=== PATIENT | female | born 1945 | race Caucasian/White ===

== ENCOUNTER → 2018-10-05 15:00 | Outpatient (CLI) | payer MEDICARE, OTHER, SELFPAY ==
--- NOTE | 2018-10-05 | DI.MG.S_ITS ---
BILATERAL DIGITAL SCREENING MAMMOGRAM 3D/2D WITH CAD: 10/05/2018 CLINICAL: Routine screening. Family history of breast cancer. Comparison is made to exams dated: 12/11/2015 mammogram - [facility], 11/27/2012 mammogram, and 11/27/2012 mammogram - Loc[facility]. There are scattered fibroglandular elements in both breasts. Current study was also evaluated with a Computer Aided Detection (CAD) system. No significant masses, calcifications, or other findings are seen in either breast. There has been no significant interval change. IMPRESSION: NEGATIVE There is no mammographic evidence of malignancy. A 1 year screening mammogram is recommended. This exam was interpreted at Station ID: [id number]. NOTE: For mammograms, a report in lay terms will be sent to the patient. Approximately 15% of breast malignancies will not be visualized mammographically. In the management of a palpable breast mass, a negative mammogram must not discourage biopsy of a clinically suspicious lesion. Electronically Signed By: Denzel [email or web address]/[email or web address]:10/05/2018 17:06:20 letter sent: Normal Exam ACR BI-RADS Category 1: Negative 3341F
== END ==
PROVIDERS: PCP Family Medicine; Visit Provider Nurse Practitioner Family
DX: Z12.31 Encounter for screening mammogram for malignant neoplasm of breast (principal); Z80.3 Family history of malignant neoplasm of breast
CPT/HCPCS: 77063; 77067

== ENCOUNTER → 2022-11-06 12:42 | Outpatient (CLI) | payer MEDICARE, OTHER, SELFPAY ==
--- NOTE | 2022-11-06 | DI.RAD.S_ITS ---
Bone Density Report Name: EMELYN DAVALOS Age: 76 Sex: Female Ethnicity: White Date of : 1945 Indication: postmenopausal; screening for osteoporosis; Referring Provider: ROSE JIMENEZ Study: Bone densitometry was performed. Exam Date: November 06, 2022 Accession number: [id number] Bone Density: Region BMD T-score Z-score Classification AP Spine(L1-L4) 1.139 0.8 3.4 Normal Femoral Neck (Left) 0.601 -2.2 0.0 Osteopenia Total Hip (Left) 0.816 -1.0 0.9 Normal Femoral Neck (Right) 0.538 -2.8 -0.6 Osteoporosis Total Hip (Right) 0.803 -1.1 0.8 Osteopenia Total Hip Mean 0.809 -1.1 0.9 Osteopenia World Health Organization criteria for BMD impression classify patients as: Normal (T-score at or above -1.0), Osteopenia (T-score between -1.0 and -2.5), or Osteoporosis (T-score at or below -2.5). 10-year Fracture Risk: FRAX not reported because: Some T-score for Spine Total or Hip Total or Femoral Neck at or below -2.5 Impression: The patient has osteoporosis, based on the Right Femoral Neck T-score. Discussion: INCREASED RISK OF FRACTURE. BONE DENSITY IS UNDESIRABLY LOW AT ONE OR MORE SKELETAL SITES, CONSISTENT WITH POSTMENOPAUSAL OSTEOPOROSIS. This patient's lowest T-score meets the World Health Organization's (WHO) criteria for osteoporosis at one or more sites (T-score -2.5 or below). In untreated patients, the risk of osteoporotic fracture increases approximately two-fold for each 1.0 SD decrease in T-score. Low bone density is not the only risk factor for fracture; also consider factors such as patient's age, frailty or poor health, risk of falling, risk of injury, previous osteoporotic fracture, family history of osteoporosis, cigarette smoking, low body weight, etc. Not everyone with low bone mineral density has osteoporosis; osteomalacia and other metabolic bone disorders should also be considered. Patients who have osteoporosis should be evaluated for specific diseases and conditions (secondary causes) that may cause or contribute to bone loss. The [place] [employer] Clinical Endocrinologists (AACE) and National Osteoporosis Foundation (NOF) recommend pharmacologic intervention for all postmenopausal women whose T-score is in this range. The patient should follow a healthful lifestyle (good nutrition with adequate calcium and vitamin D, and appropriate weight-bearing exercise). Follow-Up: Consider a repeat BMD and Vertebral Fracture Assessment (VFA) exam in 2 years or sooner if medically necessary, to reassess this patient's status. Reported by: ASA JANE M.D. on 11/06/2022 1:16:00 PM.
--- NOTE | 2022-11-06 | DI.MRI.S_ITS ---
PROCEDURE: MR HEAD/BRAIN WO/W CON INDICATIONS: MEMORY LOSS TECHNIQUE: Noncontrast axial T1 spin echo, axial T2 fast spin echo, sagittal and axial FLAIR, coronal T2 fast spin echo, axial gradient echo, axial diffusion and ADC through the brain. After the administration of contrast, axial and coronal and sagittal T1 spin echo with fat saturation through the brain. COMPARISON: [facility], CT, HEAD WITHOUT CONTRAST, 10/02/2016, 11:37. FINDINGS: Image quality: Excellent. CSF spaces: Basal cisterns are patent. No extra-axial fluid collections. Ventricles are normal in size and shape. Brain: No midline shift. No intracranial bleeds or masses. No abnormal intracranial enhancement. There is cerebral volume loss for age. There is periventricular white matter chronic small vessel ischemic change. The brainstem appears normal. Diffusion-weighted images demonstrate no acute ischemic insults. No chronic ischemic insults. Normal intravascular flow voids are present. Skull and face: Calvarial marrow is normal in signal. Orbits appear normal. Note is made of bilateral lens replacements. Sinuses: Sinuses and mastoids appear clear. IMPRESSION: Brain MRI within normal limits for age. No findings of acute or subacute infarction can be seen. No masses or abnormal enhancement can be seen. Dictated by: Jameson Castro M.D. on 11/06/2022 at 14:32 Approved by: Jameson Castro M.D. on 11/06/2022 at 14:33
--- NOTE | 2022-11-06 | DI.MG.S_ITS ---
BILATERAL DIGITAL SCREENING MAMMOGRAM 3D/2D WITH CAD: 11/06/2022 CLINICAL: Routine screening. Family history of breast cancer. Comparison is made to exams dated: 10/05/2018 mammogram - [facility], 12/11/2015 mammogram - [facility], and 11/27/2012 mammogram - [facility]. There are scattered areas of fibroglandular density in both breasts (category b / 25%-50% glandular tissue). Current study was also evaluated with a Computer Aided Detection (CAD) system. No significant masses, calcifications, or other findings are seen in either breast. There has been no significant interval change. IMPRESSION: NEGATIVE There is no mammographic evidence of malignancy. A 1 year screening mammogram is recommended. Based on the Tyrer Cuzick model (a risk assessment model) the patient's lifetime risk is 4.8% and her 10 year risk is 0.0%. According to the ACR, ACS, and NCCN guidelines, an annual breast MRI exam along with mammogram is recommended if the patient's lifetime risk is 20% or greater. This exam was interpreted at Station ID: [id number]. NOTE: For mammograms, a report in lay terms will be sent to the patient. Approximately 15% of breast malignancies will not be visualized mammographically. In the management of a palpable breast mass, a negative mammogram must not discourage biopsy of a clinically suspicious lesion. Electronically Signed By: Luis watters/deepali:11/06/2022 14:58:15 letter sent: Normal Exam ACR BI-RADS Category 1: Negative 3341F
== END ==
PROVIDERS: PCP Nurse Practitioner Family; Referring Provider Nurse Practitioner Family; Visit Provider Nurse Practitioner Family
DX: Z80.3 Family history of malignant neoplasm of breast (principal); Z12.31 Encounter for screening mammogram for malignant neoplasm of breast; M81.0 Age-related osteoporosis without current pathological fracture; R41.3 Other amnesia; Z13.820 Encounter for screening for osteoporosis; Z78.0 Asymptomatic menopausal state; Z92.23 Personal history of estrogen therapy; Z90.710 Acquired absence of both cervix and uterus
CPT/HCPCS: 70553; 77063; 77067; 77080

== ENCOUNTER 2024-05-14 15:25 | Emergency (ER) | payer MEDICARE, OTHER, SELFPAY ==
[2024-05-14 15:35] VITALS: BP 180/79; PULSE 60; RESP 17; TEMP 36.3; O2SAT 95; BMI 39.0
--- NOTE | 2024-05-14 15:42 | DI.RAD.S_ITS ---
PROCEDURE: XR KNEE LT 3V INDICATIONS: pain TECHNIQUE: 3 views of the knee were acquired. COMPARISON: None. FINDINGS: Bones: No fractures or dislocations. No suspicious bony lesions. Tricompartmental arthritic change. Soft tissues: Mild joint effusion. No suspicious soft tissue calcifications. IMPRESSION: Mild effusion. No visualized acute fracture or dislocation. However, if clinical concern and/or pain persist, short interval imaging followup in 7-10 days is recommended, as occult injury cannot be definitively excluded. Dictated by: Ria Finn M.D. on 05/14/2024 at 15:59 Approved by: Ria Finn M.D. on 05/14/2024 at 15:59
--- NOTE | 2024-05-14 17:47 | ED_ITS ---
HPI - Extremity Problem <Rose Gomez PA-C - Last Filed: 05/14/24 18:50> General Chief complaint: Extremity Problem,Nontraumatic Stated complaint: L Knee Injury Time Seen by Provider: 05/14/24 17:47 Source: patient Mode of arrival: Ambulatory History of Present Illness HPI Narrative: Patient is a very pleasant 78-year-old female that presents to the emergency room department today by herself with complaints of left knee discomfort and pain. 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 Unfortunately her left knee taken the brunt of the rehabbing, and now her left knee is causing her quite a bit of discomfort and pain. Currently at this time she states she has having a hard time doing activities of daily living, she is still able to cook, do some minor cleaning but she is having difficulty doing the laundry changing the bed and doing more active duties in the house and caring for her . She currently is taking ibuprofen in the evening, she is icing the knee, using heat. However, she has not wrapping the knee, she has not using ibuprofen during the daytime. She attempted to see her primary care doctor who said that she should go to the emergency department and asked to have an MRI. Patient denies recent injury, trauma or fall. The pain and discomfort that she is having has been ongoing for the past 2 weeks. There has been no increase in the discomfort or pain it just now is becoming increasingly hard for her to do activities and care for her . Related Data Home Medications Medication Instructions Recorded Confirmed VITAMIN D (Vitamin D3) 1,000 unit PO QDAY ##0 12/30/12 aspirin 81 mg tablet,delayed 162 mg PO QDAY ##0 12/30/12 release magnesium 200 mg tablet 200 mg PO QDAY ##0 03/12/17 Previous Rx's Medication Instructions Recorded albuterol sulfate 90 mcg/actuation 2 puff INH QID #1 inh 06/11/16 aerosol inhaler (Proventil HFA) beclomethasone dipropionate 80 0 INH BID #1 inh 06/11/16 mcg/actuation aerosol inhaler (Qvar) sertraline 50 mg tablet 50 mg PO QDAY #90 tabs 06/11/16 mupirocin 2 % topical ointment 1 alma delia topical BID ##22 10/05/16 ketoconazole 2 % shampoo (Nizoral) 1 alma delia topical SEE INSTRUCTIONS 01/27/17 #120 mL levothyroxine 75 mcg tablet 0.075 mg PO QAM #90 tabs 03/13/17 (Synthroid) Allergies Allergy/AdvReac Type Severity Reaction Status Date / Time acetaminophen [From Vicodin] AdvReac Severe GI UPSET Verified 05/14/24 15:35 hydrocodone [From Vicodin] AdvReac Severe GI UPSET Verified 05/14/24 15:35 amoxicillin [From Augmentin] AdvReac Unknown NAUSEA/VOMI Verified 05/14/24 15:35 TING clavulanic acid AdvReac Unknown NAUSEA/VOMI Verified 05/14/24 15:35 [From Augmentin] TING Review of Systems <Rose Gomez PA-C - Last Filed: 05/14/24 18:50> Review of Systems Narrative: Negative except as above Musculoskeletal Comments: Left knee pain Patient History <Rose Gomez PA-C - Last Filed: 05/14/24 18:50> Surgical History History of cataract removal with insertion of prosthetic lens Status post cholecystectomy Status post hysterectomy Family History Father Stroke Mother Heart disease Sister Age: 87 Depression Parkinson's disease Dementia Sister Age: 81 Breast cancer Depression Social History Smoking Status: Never smoker Smoking Status: Never smoker Substance Use Type: does not use Exam <Rose Gomez PA-C - Last Filed: 05/14/24 18:50> Initial Vital Signs Initial Vital Signs: Vital Signs Temperature 97.3 F L 05/14/24 15:35 Pulse Rate 60 05/14/24 15:35 Respiratory Rate 17 05/14/24 15:35 Blood Pressure 180/79 H 05/14/24 15:35 Pulse Oximetry 95 05/14/24 15:35 Oxygen Delivery Method Room Air 05/14/24 15:35 Reviewed Const General: cooperative, healthy appearing, comfortable, well developed, well groomed, No acute distress, No in distress and No anxious Nutritional Appearance: overweight Eyes General: Yes appearance normal, both eyes and all related structures Pupils: PERRL EOM: EOM intact bilaterally Skin Other: Warm pink and dry Neuro Other: Alert and oriented no acute distress Extrem Other: Range of motion, strength, pulses, cap refill is preserved, patient has an antalgic gait favoring the left knee, range of motion causes discomfort, ambulation causes discomfort. Psych Other: Appearance, mental status, speech, movement, mood, affect, attitude, thought process, thought content, judgment is appropriate. <Galen Davis MD - Last Filed: 05/14/24 21:13> Initial Vital Signs Initial Vital Signs: Vital Signs Temperature 97.3 F L 05/14/24 15:35 Pulse Rate 60 05/14/24 15:35 Respiratory Rate 17 05/14/24 15:35 Blood Pressure 180/79 H 05/14/24 15:35 Pulse Oximetry 95 05/14/24 15:35 Oxygen Delivery Method Room Air 05/14/24 15:35 Procedures <Rose Gomez PA-C - Last Filed: 05/14/24 18:50> Orthopedic Splinting/Casting Injury #1: Time of procedure: 18:46 Side: left Lower Extremity Injury Location: knee Lower Extremity Immobilizer: Sebastián wrap Placed by: Nursing Scores <Rose Gomez PA-C - Last Filed: 05/14/24 18:50> GCS Citation: 15 Course <Rose Gomez PA-C - Last Filed: 05/14/24 18:50> Orders Ordered: ED Orders 05/14/24 15:42 XR knee LT 3V Stat Vital Signs Vital signs: Vital Signs - 8 hr 05/14/24 15:35 05/14/24 18:32 Temperature 97.3 F L Pulse Rate 60 60 Respiratory Rate 17 18 Blood Pressure 180/79 H 174/76 H Pulse Oximetry 95 97 Oxygen Delivery Method Room Air Reviewed <Galen Davis MD - Last Filed: 05/14/24 21:13> Orders Ordered: ED Orders 05/14/24 15:42 XR knee LT 3V Stat Vital Signs Vital signs: Vital Signs - 8 hr 05/14/24 15:35 05/14/24 18:32 Temperature 97.3 F L Pulse Rate 60 60 Respiratory Rate 17 18 Blood Pressure 180/79 H 174/76 H Pulse Oximetry 95 97 Oxygen Delivery Method Room Air MDM - Extremity (Nontraumatic) <Rose Gomez PA-C - Last Filed: 05/14/24 18:50> Imaging Data Extremity x-ray #1: Radiologist's Impression: [address] [address] XRay Report Signed Patient: Ayaka Menjivar MR#: [id number] : 1945 Acct:[id number] Age/Sex: 78 / F Date of Service: 05/14/24 Loc: ED Accession Number: [id number] Procedure: XR knee LT 3V Ordering Provider: Galen Davis MD PROCEDURE: XR KNEE LT 3V INDICATIONS: pain TECHNIQUE: 3 views of the knee were acquired. COMPARISON: None. FINDINGS: Bones: No fractures or dislocations. No suspicious bony lesions. Tric ompartmental arthritic change. Soft tissues: Mild joint effusion. No suspicious soft tissue calcifications. IMPRESSION: Mild effusion. No visualized acute fracture or dislocation. However, if clinical concern and/or pain persist, short interval imaging followup in 7-10 days is recommended, as occult injury cannot be definitively excluded. Dictated by: Ria Finn M.D. on 05/14/2024 at 15:59 Approved by: Ria Finn M.D. on 05/14/2024 at 15:59 [facility] Narrative Medical decision making narrative: Pleasant 78-year-old female presents to the emergency department on the behest of her primary care doctor for possible MRI for her ongoing left knee pain. With a history of osteoarthritis, with a previous right knee pain that she has been rehabbing, and now due to ongoing subsequent over usage of the left knee now having left knee pain that is impacting her ability to do daily activities and care for her . Who over the last 2 weeks has had increasing discomfort and pain, with no recent injury, trauma or fall. Who is taking ibuprofen in the evening to get rest, and using ice with a moderate amount of relief for her discomfort and pain. However is not taking ibuprofen during the day and is using ice to help relieve the discomfort but continues to have problems doing her daily activities presents to the emergency room department requesting an MRI for evaluation of her meniscus and possible internal derangement of the left knee due to continued discomfort and pain. Currently at this time her x-rays show tricompartmental arthritis of the left knee. No acute fractures noted. Her exam is negative for any substantial acute findings. She is antalgic gait. Patient is here due to inability to complete activities of daily living. Currently at this time I have advised the patient that it would be better for primary care doctor ordered an outpatient MRI and follows up with the results. We have reviewed [id number] supportive therapy such as topical preparations, oral preparations ice, supportive devices such as Sebastián wraps, knee sleeves, hinged knee support braces as well. To help with supporting of the left knee. An outpatient MRI ordered by her primary care doctor for follow-up and if needed a referral to Orthopedics. I have advised her that we do not do elective MRIs here in the emergency room department for ongoing chronic related pain issues. MRIs are only ordered on an emergency basis here in the emergency department. Patient understands, and Sebastián wrap is applied prior to her leaving, she is given supplemental education ED precautions. Patient plans to call her primary care doctor and request an outpatient MRI be ordered. Differential diagnosis, over usage of the left knee, left knee sprain, possible internal derangement of the left knee. Discharge Plan Departure Patient Disposition: Home Clinical Impression: Left knee sprain Qualifiers: Encounter type: initial encounter Involved ligament of knee: unspecified ligament Qualified Code(s): S83.92XA - Sprain of unspecified site of left knee, initial encounter Internal derangement of knee Qualifiers: Laterality: left Qualified Code(s): M23.92 - Unspecified internal derangement of left knee Activity Restrictions/Additional Instructions: Elevate, ice, heat, consider using ibuprofen during the daytime, knee sleeve, Sebastián wrap. Please call your primary care doctor ask them to call in or faxed in a prescription for an MRI with and without contrast of the left knee to evaluate for meniscal injury, internal derangement of the left knee. Prescriptions: No Action aspirin 81 MG tablet,delayed release (DR/EC) 162 mg PO QDAY Qty: 0 VITAMIN D (Vitamin D3) 1,000 unit PO QDAY Qty: 0 albuterol sulfate [Proventil HFA] 90 MCG/PUFF HFA aerosol inhaler 2 puff INH QID Qty: 1 11RF sertraline 50 MG tablet 50 mg PO QDAY Qty: 90 3RF beclomethasone dipropionate [Qvar] 80 MCG/PUFF aerosol 0 INH BID Qty: 1 3RF mupirocin 2 % ointment 1 alma delia Topical BID Qty: 22 0RF ketoconazole [Nizoral] 2 % shampoo 1 alma delia Topical SEE INSTRUCTIONS Qty: 120 2RF magnesium 200 MG tablet 200 mg PO QDAY Qty: 0 levothyroxine [Synthroid] 75 MCG tablet 0.075 mg PO QAM Qty: 90 1RF Referrals: Asmita Wade ARNP [Primary Care Provider] - Stand Alone Forms: Patient Portal/API ED Sign-out <Galen Davis MD - Last Filed: 05/14/24 21:13> Cosign ED Attending Cosignature Attestation: I was immediately available in the department for consultation. This documentation has been reviewed. Galen Davis MD
[2024-05-14 18:32] VITALS: BP 174/76; PULSE 60; RESP 18; O2SAT 97
== END 2024-05-14 18:35 | disposition home or self-care (01) ==
PROVIDERS: Emergency Provider Physician Assistant; PCP Nurse Practitioner Family
DX: S83.92XA Sprain of unspecified site of left knee, initial encounter (principal); M23.92 Unspecified internal derangement of left knee; X58.XXXA Exposure to other specified factors, initial encounter
CPT/HCPCS: 73562; 99281; 99283

== ENCOUNTER 2025-01-08 15:05 | Emergency (ER) | payer MEDICARE, OTHER, SELFPAY ==
[2025-01-08] VITALS (10 sets, daily range): BP systolic 144–184; BP diastolic 68–84; PULSE 49–85; RESP 16–20; TEMP 36.3–36.8; O2SAT 83–100; BMI 38.3
--- NOTE | 2025-01-08 15:25 | ED_ITS ---
HPI - Trauma General Chief Complaint: Trauma Stated Complaint: GLF/head LAC History of Present Illness HPI narrative: 79-year-old female fell today ground level fall after tripping over a log hitting her head against a table on the way down with complaints of head, neck, middle back pain, left knee pain and numbness tingling down the left leg. Patient denies nausea, vomiting, diarrhea, chest pain, shortness of breath, dizziness, blurred vision, nausea, vomiting, bowel or bladder incontinence. Patient was C-collar backboard prior to arrival and [facility] here. Patient unsure last tetanus. Other than what is stated 14 point review of system is negative. Related Data Home Medications ?Medication ?Instructions ?Recorded ?Confirmed VITAMIN D (Vitamin D3) 1,000 unit PO QDAY ##0 12/30 aspirin 81 mg tablet,delayed 162 mg PO QDAY ##0 release magnesium 200 mg tablet 200 mg PO QDAY ##0 03/12/17 Previous Rx's ?Medication ?Instructions ?Recorded albuterol sulfate 90 mcg/actuation 2 puff INH QID #1 i nh 06/11/16 aerosol inhaler (Proventil HFA) beclomethasone dipropionate 80 0 INH BID #1 inh mcg/actuation aerosol inhaler (Qvar) sertraline 50 mg tablet 50 mg PO QDAY #90 tabs 06/11 mupirocin 2 % topical ointment 1 alma delia topical BID ##22 10/05/16 ketoconazole 2 % shampoo (Nizoral) 1 alma delia topical SEE I NSTRUCTIONS 01/27/17 #120 mL levothyroxine 75 mcg tablet 0.075 mg PO QAM #90 tabs 0 03/13/17 (Synthroid) Allergies Allergy/AdvReac Type Severity Reaction Status Date / Time hydrocodone (From Vicodin) AdvReac Severe GI UPSET Verified 01/08/25 15:15 amoxicillin (From Augmentin) AdvReac Unknown NAUSEA/VOMI Verified 01/08/25 15:15 TING clavulanic acid (From AdvReac Unknown NAUSEA/VOMI Verified 01/08/25 15:15 Augmentin) TING Review of Systems Review of Systems ROS Unobtainable: All systems reviewed & are unremarkable except as noted in HPI and below Patient History Surgical History History of cataract removal with insertion of prosthetic lens Status post cholecystectomy Status post hysterectomy Family History Father Stroke Mother Heart disease Sister Age: 87 Depression Parkinson's disease Dementia Sister Age: 81 Breast cancer Depression Exam Narrative Exam Narrative: GENERAL: [79] year old patient appears stated age. Well-developed patient, in mild distress. HEAD: Atraumatic. Normocephalic. EYES: Pupils equal round and reactive. Extraocular motions intact. No scleral icterus. No injection or drainage. ENT: Nose without bleeding, purulent drainage. Throat without erythema, tonsillar hypertrophy or exudate. Airway patent. NECK: Trachea midline. Non tender CARDIOVASCULAR: Regular rate and rhythm without murmurs, gallops, or rubs. RESPIRATORY: Clear to auscultation. Breath sounds equal bilaterally. No wheezes, rales, or rhonchi. GASTROINTESTINAL: Abdomen soft, non-tender, nondistended. EXTREMITIES: Pelvis stable exam no obvious deformity, left medial and lateral joint line knee tenderness to palpation but no effusion rash or open wounds motor sensory intact +2 DP +2 PT cap refill less than 2 sec BACK: Nontender without deformity or crepitance. No flank tenderness. NEURO: AOx3. GCS 15 nonfocal neuro exam motor sensory intact bilateral upper and lower extremity 5/5 SKIN: No rash or erythema of visible areas Initial Vital Signs Initial Vital Signs: Vital Signs Pulse Rate 83 01/08/25 15:10 Pulse Oximetry 98 01/08/25 15:10 Procedures Laceration Repair Laceration 1: Time of procedure: 17:25 Site: face Size (cm): 3.0 Description: linear Local Anesthetic: lidocaine 1% and with epi Amount of anesthesia used (mL): 2 Pre-repair: wound explored Skin layer closed with: nylon Skin layer suture size: 5-0 Number of sutures: 6 Course Orders Ordered: ED Orders 01/08/25 15:17 Complete Blood Count AUTO DIFF Stat Comprehensive Metabolic Panel Stat Lipase Stat 01/08/25 15:22 EKG-12 Lead Stat 01/08/25 15:23 CT cervical spine wo con Stat CT chest abd pel w con Stat CT head/brain wo con Stat 01/08/25 15:26 XR knee LT 3V Stat Ondansetron HCl (Ondansetron 4 Mg/2 Ml Inj) 4 mg IV NOW PRN PRN Reason: Nausea And Vomiting Last Admin: 01/08/25 16:26 Dose: 4 mg Documented By: Ondansetron HCl (Ondansetron 4 Mg Odt) 4 mg PO NOW PRN PRN Reason: Nausea And Vomiting Discontinued Medications Bacitracin (Bacitracin Oint 0.9 Gm Pckt) 1 applic TOP NOW ONE Stop: 01/08/25 17:24 Diphtheria/Tetanus/Acell Pertussis (Tet,Diph,Pertuss(Acell),Vac/Pf 0.5 Ml Syringe) 0.5 ml IM .ONCE ONE Stop: 01/08/25 15:24 Last Admin: 01/08/25 16:20 Dose: 0.5 ml Documented By: Vital Signs Vital signs: Vital Signs - 8 hr 01/08/25 15:10 01/08/25 15:15 01/08/25 15:17 Temperature 98.2 F Pulse Rate 83 82 76 Respiratory Rate 20 16 Blood Pressure 179/76 H Pulse Oximetry 98 97 96 Oxygen Delivery Method Room Air 01/08/25 15:17 01/08/25 15:30 01/08/25 15:57 Temperature Pulse Rate 49 L Respiratory Rate Blood Pressure 179/76 H 184/79 H Pulse Oximetry 83 L Oxygen Delivery Method 01/08/25 15:57 01/08/25 16:00 01/08/25 16:00 Temperature Pulse Rate 81 83 Respiratory Rate Blood Pressure 172/82 H Pulse Oximetry 97 97 Oxygen Delivery Method 01/08/25 16:30 Temperature Pulse Rate 85 Respiratory Rate Blood Pressure Pulse Oximetry 100 Oxygen Delivery Method MDM - Trauma Lab Data 01/08/25 15:17 01/08/25 15:17 Labs: Lab Results 01/08/25 Range/Units 15:17 WBC 5.9 (4.5-11.0) X10^3/uL RBC 4.31 (4.0-5.2) X10^6/uL Hgb 12.7 (12.0-16.0) g/dL Hct 37.8 (36-46) % MCV 87.6 (80-100) fL MCH 29.4 (26-34) PG MCHC 33.5 (30-36) % RDW 13.5 (11.6-14.8) % Plt Count 175 (150-400) X10^3/uL Neut % (Auto) 67.9 (50-75) % Lymph % (Auto) 23.9 L (25-40) % [place] % (Auto) 5.9 (3-14) % Eos % (Auto) 1.6 L (2-4) % Baso % (Auto) 0.7 (0-2) % Neut # (Auto) 4000 (1467-4691) /uL Lymph # (Auto) 1400 (0294-8068) /uL [place] # (Auto) 300 (0-900) /uL Eos # (Auto) 100 (0-450) /uL Baso # (Auto) 0 (0-100) /uL Sodium 139 (137-145) mmol/L Potassium 3.5 (3.4-5.1) mmol/L Chloride 111 H (98-107) mmol/L Carbon Dioxide 24 (22-32) mmol/L BUN 15 (7-17) mg/dL Creatinine 0.88 (0.52-1.04) mg/dL Estimated GFR > 60 (>60) mL/min BUN/Creatinine Ratio 17.0 (6-22) Glucose 99 (70-99) mg/dL Calcium 8.6 (8.4-10.2) mg/dL Total Bilirubin 0.6 (0.2-1.3) mg/dL AST 29 (14-36) IU/L ALT 14 (<35) IU/L Alkaline Phosphatase 103 (38-126) U/L Total Protein 6.2 L (6.3-8.2) g/dL Albumin 3.5 (3.5-5.0) g/dL Globulin 2.7 (1.7-4.1) g/dL Albumin/Globulin Ratio 1.3 (1.0-2.8) Lipase 143 (23-300) U/L Imaging Data Extremity x-ray #1: Radiologist's Impression: [address] [address] XRay Report Signed Patient: Ayaka Menjivar MR#: [id number] : 1945 Acct:[id number] Age/Sex: 79 / F Date of Service: 01/08/25 Loc: ED Accession Number: [id number] Procedure: XR knee LT 3V Ordering Provider: Lenny Desir D.O. PROCEDURE: XR KNEE LT 3V INDICATIONS: fall TECHNIQUE: 3 views of the knee were acquired. COMPARISON: [facility], , XR KNEE LT 3V, 05/14/2024, 15:40. FINDINGS: Bones: No fractures or dislocations. No suspicious bony lesions. Medial compartment joint space narrowing Soft tissues: No joint effusion. No suspicious soft tissue calcifications. IMPRESSION: Arthritic changes without fracture or foreign body Approved by: Damon Webb M.D. on 01/08/2025 at 15:02 CT scan - head: Radiologist's Impression: [place] [address] CT Scan Report Signed Patient: Ayaka Menjivar MR#: [id number] : 1945 Acct:[id number] Age/Sex: 79 / F Date of Service: 01/08/25 Loc: ED Accession Number: [id number] Procedure: CT head/brain wo con Ordering Provider: Lenny Desir D.O. PROCEDURE: CT HEAD/BRAIN WO CON INDICATIONS: trauma mechanical fall TECHNIQUE: Noncontrast 4.5 mm thick angled axial sections acquired from the foramen magnum to the vertex, with coronal and sagittal reformats. For radiation dose reduction, the following was used: automated exposure control, adjustment of mA and/or kV according to patient size. COMPARISON: None. FINDINGS: Image quality: Diagnostic. CSF spaces: Basal cisterns are patent. No extra-axial fluid collections. Ventricles are normal in size and shape. Brain: No midline shift. No intracranial mass effect or hemorrhage. Avila- white matter interface is normal. Skull and face: Calvarium and visualized facial bones are intact, without suspicious lesions. Small right frontal soft tissue hematoma Sinuses: Visualized sinuses and mastoids are clear. IMPRESSION: Small right frontal scalp hematoma without underlying skull fracture or intracranial hemorrhage Approved by: Damon Webb M.D. on 01/08/2025 at 15:07 CT scan - chest: Radiologist's Impression: [address] [address] [address] Scan Report Signed Patient: Ayaka Menjivar MR#: [id number] : 1945 Acct:[id number] Age/Sex: 79 / F Date of Service: 01/08/25 Loc: ED Accession Number: [id number] Procedure: CT chest abd pel w con Ordering Provider: Lenny Desir D.O. PROCEDURE: CT CHEST ABD PEL W CON INDICATIONS: trauma fall TECHNIQUE: After the administration of intravenous contrast, 5 mm thick sections acquired from the lung apices to the symphysis. 5 mm coronal and sagittal reformats were performed, with additional 7 mm MIP reformats through the lungs. For radiation dose reduction, the following was used: automated exposure control, adjustment of mA and/or kV according to patient size. COMPARISON: None. FINDINGS: Image quality: Excellent. CHEST: Lower Neck: No enlarged lymph nodes. Thyroid: No thyroid nodules which require sonographic follow up, per consensus guidelines. Axillae: No enlarged lymph nodes. Chest Wall: Unremarkable. Lungs and Pleura: No pneumothorax or pleural effusions. No consolidation or suspicious nodules. Heart: Heart size is normal. No pericardial effusion. Thoracic Vessels: The aorta and pulmonary arteries demonstrate normal size. Mediastinum and [place]: No enlarged lymph nodes. Esophagus: No wall thickening. No hiatal hernia. ABDOMEN: Liver: No solid mass. Gallbladder: Status post cholecystectomy Biliary ducts: No biliary dilation. Pancreas: No ductal dilation. Spleen: Size is within normal limits. Adrenal Glands: No adrenal nodules. Kidneys and Ureters: No hydronephrosis. No solid mass. No complex renal cystic lesion which requires follow up. Stomach and Bowel: Normal colonic caliber, without significant wall thickening. Peritoneum: No abnormal intraperitoneal fluid. No free air. Ventral Wall: No significant ventral hernia. Abdominal Nodes: No retroperitoneal or mesenteric adenopathy by size criteria. Vessels: Aorta and inferior vena cava are normal in size. PELVIS: Pelvic Organs: Status post hysterectomy. No adnexal mass seen. Bladder: No bladder wall thickening, accounting for underdistention. Pelvic Nodes: No enlarged lymph nodes. Miscellaneous: No inguinal hernias are seen. Bones: No aggressive osseous abnormality. IMPRESSION: No acute traumatic lesion seen in the chest, abdomen and pelvis. Dictated by: Jerardo Hughes M.D. on 01/08/2025 at 15:58 Approved by: Jerardo Hughes M.D. on 01/08/2025 at 16:[address] [place] [address] [id number] [address] Scan Report Signed Patient: Ayaka Menjivar MR#: [id number] : 1945 Acct:[id number] Age/Sex: 79 / F Date of Service: 01/08/25 Loc: ED Accession Number: [id number] Procedure: CT cervical spine wo con Ordering Provider: Lenny Desir D.O. PROCEDURE: CT CERVICAL SPINE WO CON INDICATIONS: trauma mechanical fall TECHNIQUE: Noncontrast 3 mm thick sections acquired from the skull base to the T4 level. Sagittal and coronal reformats were then constructed. For radiation dose reduction, the following was used: automated exposure control, adjustment of mA and/or kV according to patient size. COMPARISON: None. FINDINGS: Image quality: Excellent. Bones: No fractures or dislocations. Visualized superior ribs are intact. Diffuse disc space narrowing marginal osteophytes. Moderate arthropathy. Moderate central stenosis C6-7. Facet ankylosis at C3-4 and C4-5 particularly on the right Soft tissues: Prevertebral soft tissues are normal in thickness. No paravertebral hematomas. No apical pneumothoraces. IMPRESSION: No displaced fracture or traumatic subluxation. 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 CT head chest abdomen and pelvis did not show any acute process along with cervical spine showing degenerative disc disease and arthropathy associated with moderate C6-7 central stenosis and frontal scalp hematoma. GCS of 15 nonfocal neuro exam. Six stitches placed single interrupted sutures 5-0 Ethicon topical bacitracin applied suture removal in 3-5 days with PCP. Differential diagnosis includes brain hemorrhage fracture dislocation contusion laceration foreign body liver laceration spleen injury. Discharge Plan Departure Patient Disposition: Home Clinical Impression: Back pain of thoracolumbar region Hematoma of frontal scalp Qualifiers: Encounter type: initial encounter Qualified Code(s): S00.03XA - Contusion of scalp, initial encounter Forehead laceration Qualifiers: Encounter type: initial encounter Qualified Code(s): S01.81XA - Laceration without foreign body of other part of head, initial encounter Acute knee pain Qualifiers: Laterality: left Qualified Code(s): M25.562 - Pain in left knee Activity Restrictions/Additional Instructions: Return with new or worsening symptoms. Suture removal in 3-5 days. Prescriptions: No Action aspirin 81 MG tablet,delayed release (DR/EC) 162 mg PO QDAY Qty: 0 VITAMIN D (Vitamin D3) 1,000 unit PO QDAY Qty: 0 albuterol sulfate [Proventil HFA] 90 MCG/PUFF HFA aerosol inhaler 2 puff INH QID Qty: 1 11RF sertraline 50 MG tablet 50 mg PO QDAY Qty: 90 3RF beclomethasone dipropionate [Qvar] 80 MCG/PUFF aerosol 0 INH BID Qty: 1 3RF mupirocin 2 % ointment 1 alma delia Topical BID Qty: 22 0RF ketoconazole [Nizoral] 2 % shampoo 1 alma delia Topical SEE INSTRUCTIONS Qty: 120 2RF magnesium 200 MG tablet 200 mg PO QDAY Qty: 0 levothyroxine [Synthroid] 75 MCG tablet 0.075 mg PO QAM Qty: 90 1RF Referrals: Asmita Wade ARNP [Primary Care Provider, Medical] Stand Alone Forms: Patient Portal/API
[2025-01-08 15:33] LABS: Add Manual Diff / Slide Review NO; Basophils Absolute Auto 0 /uL (0-100); Basophils Percent Auto 0.7 % (0-2); Eosinophils Absolute Auto 100 /uL (0-450); Eosinophils Percent Auto 1.6 % (2-4); Hematocrit 37.8 % (36-46); Hemoglobin 12.7 g/dL (12.0-16.0); Lymphocytes Absolute Auto 1400 /uL (1100-4500); Lymphocytes Percent Auto 23.9 % (25-40); Mean Corpuscular HGB Conc 33.5 % (30-36); Mean Corpuscular Hemoglobin 29.4 PG (26-34); Mean Corpuscular Volume 87.6 fL (80-100); Monocytes Absolute Auto 300 /uL (0-900); Monocytes Percent Auto 5.9 % (3-14); Neutrophils Absolute Auto 4000 /uL (1500-7000); Neutrophils Percent Auto 67.9 % (50-75); Platelet Count 175 X10^3/uL (150-400); Red Blood Cell Count 4.31 X10^6/uL (4.0-5.2); Red Cell Distribution Width 13.5 % (11.6-14.8); White Blood Cell Count 5.9 X10^3/uL (4.5-11.0)
[2025-01-08 15:38] LABS: Alanine Aminotransferase 14 IU/L (<35); Albumin 3.5 g/dL (3.5-5.0); Albumin Globulin Ratio 1.3 (1.0-2.8); Alkaline Phosphatase 103 U/L (38-126); Aspartate Aminotransferase 29 IU/L (14-36); Bilirubin Total 0.6 mg/dL (0.2-1.3); Blood Urea Nitrogen 15 mg/dL (7-17); Calcium 8.6 mg/dL (8.4-10.2); Carbon Dioxide 24 mmol/L (22-32); Chloride 111 mmol/L (98-107); Estimated Glomerular Filt Rate > 60 mL/min (>60); Globulin 2.7 g/dL (1.7-4.1); Glucose 99 mg/dL (70-99); HEMOLYSIS < 15 (0-50); Lipase 143 U/L (23-300); Potassium 3.5 mmol/L (3.4-5.1); Sodium 139 mmol/L (137-145); Total Protein 6.2 g/dL (6.3-8.2)
[2025-01-08] MEDS: TET,DIPH,PERTUSS(ACELL),VAC/PF 0.5 ML SYRINGE IM (16:20)
[2025-01-08] MEDS: ONDANSETRON 4 MG/2 ML INJ IV (16:26)
[2025-01-08] MEDS: BACITRACIN OINT 0.9 GM PCKT 1 APPLIC TOP (17:27)
== END 2025-01-08 18:08 | disposition home or self-care (01) ==
PROVIDERS: Emergency Provider Family Medicine; PCP Nurse Practitioner Family
DX: S01.81XA Laceration without foreign body of other part of head, initial encounter (principal); M25.562 Pain in left knee; M54.2 Cervicalgia; M54.9 Dorsalgia, unspecified; R20.0 Anesthesia of skin; W01.190A Fall on same level from slipping, tripping and stumbling with subsequent striking against furniture, initial encounter; Z23 Encounter for immunization
CPT/HCPCS: 12013; 36415; 70450; 71260; 72125; 73562; 74177; 80053; 83690; 85025; 90471; 96374; 99284; 90715; J2405; Q9967